=== PATIENT | male | born 1950 | race Caucasian/White ===

== ENCOUNTER 2017-01-30 22:25 | Emergency (ER) | payer OTHER ==
[2017-01-30 22:28] VITALS: RESP 18
--- NOTE | 2017-01-30 23:05 | ED PDOC ---
Lower Extremity Pain/Injury Time Seen by Provider: 01/30/17 22:31 Chief Complaint (Nursing): Lower Extremity Problem/Injury Chief Complaint (Provider): Left foot bleeding History Per: Patient History/Exam Limitations: no limitations Onset/Duration Of Symptoms: Hrs (x 1) Current Symptoms Are (Timing): Still Present Additional Complaint(s): Manuel is a 66 y/o male with a history of cardiac arrhythmia, CAD, pre-diabetes, hypertension, s/p stent placement, who presents to the ED complaining of left foot bleeding for 1 hour. States that he has had a varicose vein on dorsum of foot for some time, with an associated scab which he has been scratching. After scratching today, the scab dislodged, with copious bleeding. EMS responded, and bandaged the foot. Patient denies lightheadedness, chest pain , shortness of breath, and dizziness. At present the patient has no other medical complaints. PMD: Shelton Lennon Past Medical History Reviewed: Historical Data, Nursing Documentation, Vital Signs Vital Signs: Last Vital Signs Temp 98.9 F 01/30/17 22:26 Pulse 66 01/30/17 22:26 Resp 18 01/30/17 22:26 BP 154/82 H 01/30/17 22:26 Pulse Ox 99 01/30/17 22:26 - Medical History PMH: Asthma, CAD, Cardia Arrhythmia, HTN Other PMH: Pre-diabetic - Surgical History Surgical History: Coronary Stent - Family History Family History: States: Unknown Family Hx - Social History Current smoker - smoking cessation education provided: No Alcohol: None Drugs: Denies - Home Medications Home Medications: Ambulatory Orders Medication Instructions Recorded DiphenhydrAMINE [Benadryl] 2 tab PO Q4 PRN #30 cap 07/29/14 Famotidine [Pepcid] 20 mg PO BID #10 tab 07/29/14 Prednisone 3 tab PO DAILY #12 tab 07/29/14 Acetaminophen [Acetaminophen Extra 500 mg PO 01/30/17 Strength] Atorvastatin [Lipitor] 40 mg PO 01/30/17 Isosorbide Mononitrate [Imdur] 30 mg PO 01/30/17 Omeprazole 40 mg PO 01/30/17 - Allergies Allergies/Adverse Reactions: Allergies Allergy/AdvReac Type Severity Reaction Status Date / Time No Known Allergies Allergy Verified 07/29/14 16:29 Review of Systems ROS Statement: Except As Marked, All Systems Reviewed And Found Negative Cardiovascular: Negative for: Chest Pain Respiratory: Negative for: Shortness of Breath Musculoskeletal: Positive for: Other (Left foot bleeding) Neurological: Negative for: Dizziness, Other (Lightheadedness) Physical Exam - Reviewed Nursing Documentation Reviewed: Yes Vital Signs Reviewed: Yes - Physical Exam Appears: Positive for: Non-toxic, No Acute Distress Head Exam: Positive for: ATRAUMATIC, NORMAL INSPECTION, NORMOCEPHALIC Skin: Positive for: Normal Color, Warm, Dry Eye Exam: Positive for: EOMI, Normal appearance, PERRL Neck: Positive for: Normal, Painless ROM, Supple Cardiovascular/Chest: Positive for: Regular Rate, Rhythm. Negative for: Murmur Respiratory: Positive for: Normal Breath Sounds. Negative for: Accessory Muscle Use, Respiratory Distress Pulses-Dorsalis Pedis (L): 2+ Pulses-Dorsalis Pedis (R): 2+ Gastrointestinal/Abdominal: Positive for: Normal Exam, Soft. Negative for: Tenderness Back: Positive for: Normal Inspection. Negative for: Vertebral Tenderness Extremity: Positive for: Other (Left foot w/ excoriation to the dorsum about 1 cm in length. Ulcers noted at the lateral malleolar surface. Varicose veins bilaterally.) Neurologic/Psych: Positive for: Alert, Oriented. Negative for: Motor/Sensory Deficits - ECG O2 Sat by Pulse Oximetry: 99 (RA) Pulse Ox Interpretation: Normal Medical Decision Making Medical Decision Making: Initial Impression: 66 y/o male with left foot varicose vein bleed Plan: --Ordered podiatry consult Time: 23:45 --Podiatry consult completed, patient is stable for discharge home Clinical Impression: Varicose veins of left lower extremity with ulcer other part of foot --Patient will call to schedule [facility] --Counseling was provided and all questions were answered regarding diagnosis and need for follow up. --There is agreement to discharge plan. Return if symptoms persist or worsen. Scribe Attestation: Documented by Jacki Everett, acting as a scribe for Stefan Farrell MD Provider Scribe Attestation: All medical record entries made by the Scribe were at my direction and personally dictated by me. I have reviewed the chart and agree that the record accurately reflects my personal performance of the history, physical exam, medical decision making, and the department course for this patient. I have also personally directed, reviewed, and agree with the discharge instructions and disposition. Disposition - Clinical Impression Clinical Impression: Varicose veins of left lower extremity with ulcer other part of foot - Patient ED Disposition Is Patient to be Admitted: No Counseled Patient/Family Regarding: Diagnosis, Need For Followup - Disposition [facility]errals: [facility] [Outside] Disposition: Routine/Home Disposition Time: 23:45 Condition: STABLE Additional Instructions: Call Wound Care for follow up appointment with Dr Austin Instructions: Varicose Veins (ED) Forms: [employer] (English) Print Language: SLOVENIAN
[2017-01-31 00:02] VITALS: BP 130/79; PULSE 72; TEMP 98; O2SAT 100
--- NOTE | 2017-01-31 00:39 | CP.PCM.CON ---
History of Present Illness - History of Present Illness History of Present Illness: 66 year old male patient PMHx cardiac arrythmia, CAD, pre-diabetes, HTN, s/p stent placement seen at bedside in ED at the request for podiatry consultation for ulcerations to left lateral malleolus. Patient was taken to ED because he scratched a varicose vein on the front of his left ankle which caused him to bleed profusely from the ruptured area. Podiatry was consulted as the patient was revealed to have wounds to his lateral ankle. Patient states he has had the lateral ankle ulcers to the outside of his left ankle for 2 months, and admits that he feels mild pain to the area. Patient states he has had surgery for his left leg varicose veins, and follows a vascular doctor in the hospital [name unknown]. Patient denies N/V/F/D/C/SOB. No other pedal complaints at this time. Review of Systems - Review of Systems All systems: reviewed and no additional remarkable complaints except (as per HPI ) Past Patient History - Past Social History Alcohol: None Drugs: Denies - CARDIAC Hx Cardia Arrhythmia: Yes Hx Hypertension: Yes - PULMONARY Hx Asthma: Yes - PSYCHIATRIC Hx Substance Use: No - SURGICAL HISTORY Hx Coronary Stent: Yes - ANESTHESIA Hx Anesthesia: No Meds Allergies/Adverse Reactions: Allergies Allergy/AdvReac Type Severity Reaction Status Date / Time No Known Allergies Allergy Verified 07/29/14 16:29 Physical Exam - Constitutional Appears: Well, Non-toxic, No Acute Distress - Extremities Exam Additional comments: LLE focused physical exam VASC: DP and PT pulses palpable 1/4. CFT WNL. TG warm to warm. No increase in warmth noted to lateral malleolus. Varicose veins noted to LLE NEURO: Gross sensation intact Derm: Two ulcerations noted to lateral malleolus each measuring approximately 0.2 x 0.2 x 0.2 cm with no drainage, purulence, fluctuance, malodor, or clinical signs of infection noted. Skin around lateral malleolus appears hyperpigmented and indurated. Excoriation noted to dorsum of foot measuring approximately 1 cm with no active bleeding noted at the time of visit. ORTHO: Mild tenderness to palpation lateral malleolus ulcerations x2 - Neurological Exam Neurological exam: Alert, Oriented x3 - Psychiatric Exam Psychiatric exam: Normal Affect, Normal Mood Results - Vital Signs Recent Vital Signs: Last Vital Signs Temp 98 F 01/31/17 00:02 Pulse 72 01/31/17 00:02 Resp 18 01/31/17 00:02 BP 130/79 01/31/17 00:02 Pulse Ox 100 01/31/17 00:02 Assessment & Plan - Assessment and Plan (Free Text) Assessment: 66 year old male patient with venous insufficiency ulcerations and varicose veins to LLE Plan: Patient seen and evaluated Discussed with attending, Dr. Austin Chart and vitals reivewed = afebrile LLE cleansed and dressed with DSD Patient is to follow up in wound care clinic with Dr. Austin next week. Advised patient to keep dressing clean/dry/intact until follow up appointment Stable per podiatry standpoint Thank you for this consult, please reconsult podiatry again as needed
== END 2017-01-31 00:02 | disposition home or self-care (01) ==
LOC: H.ER 22:25
DX: I83.025 Varicose veins of left lower extremity with ulcer other part of foot (principal); I10 Essential (primary) hypertension; J45.909 Unspecified asthma, uncomplicated; R73.03 Prediabetes; Z95.5 Presence of coronary angioplasty implant and graft